=== PATIENT | male | born 1955 | race Caucasian/White ===

== ENCOUNTER → 2021-04-30 | Outpatient (CLI) | payer MEDICARE ==
[~2021-04-30] MED LIST: Advil200 M1 PO
[2021-04-30 10:58] LABS: Bilirubin, Urine Neg (Neg); Blood, Urine 2+ (Neg); Glucose Qualitative, Urine Neg (Neg); Ketones, Urine Neg (Neg); Leukocyte Esterase, Urine Neg (Neg); Nitrite, Urine Neg (Neg); Protein, Urine Neg (Neg); Specific Gravity, Urine 1.015 (1.003-1.022); Urobilinogen, Urine NORM (Normal)
[2021-04-30 11:18] LABS: Appearance, Urine Clear (Clear); Color, Urine Yellow (P-Yellow)
[2021-04-30 11:29] LABS: White Blood Cells, Urine 0-2 /hpf (0-5)
[2021-04-30 11:31] LABS: Bacteria Not Seen /hpf; Hyaline Casts 0-2 /lpf (0-2); Mucus Light (0-Heavy); Squamous Epithelial Cells Rare /hpf (Few)
== END ==
LOC: LAB SHORT 10:36 → LAB 10:36
PROVIDERS: Surgery
DX: Z51.0 Encounter for antineoplastic radiation therapy (principal); C61 Malignant neoplasm of prostate
CPT/HCPCS: 81001

== ENCOUNTER 2022-05-22 15:02 | Emergency (ER) | payer MEDICARE ==
[~2022-05-22] VITALS: Ht 180.3 cm; Wt 94.3 kg
== END 2022-05-22 19:27 | disposition home or self-care (01) ==
LOC: ER 15:02
DX: M70.32 Other bursitis of elbow, left elbow (principal); M25.832 Other specified joint disorders, left wrist; S62.102A Fracture of unspecified carpal bone, left wrist, initial encounter for closed fracture; X58.XXXA Exposure to other specified factors, initial encounter; Z79.899 Other long term (current) drug therapy
CPT/HCPCS: 73201; Q9967

== ENCOUNTER 2023-03-15 07:28 | Day surgery (SDC) | payer OTHER ==
[~2023-03-15] VITALS: Ht 182.9 cm; Wt 88.0 kg
[~2023-03-15 07:28] MED LIST changes: +ACET325 PO; +ALPHA LIPOIC ACID; +AMOCLA875 PO; -Advil200 M1 PO; +CENTRUM SILVER1 EAC2; +IBUP200 PO; +MELO7.5; +Penicillin V P500 MG PO; +Simvastatin20 MG PO; +TURMERIC500 M2; +VISBIOME 112.51 EACH PO; +VITAMIN D310 MC4; +ZINC15; +[UNRECOGNIZED DRUG - OTHER]
--- NOTE | 2023-03-15 09:10 | NUR ---
03/15/23 0910 [facility] APC USED FOR CAUTERY DURING PROCEDURE PER
[2023-03-15 09:52] VITALS: BP 149/82
== END 2023-03-15 09:45 | disposition home or self-care (01) ==
LOC: ORSCSDS 07:28
PROVIDERS: Internal Medicine Gastroenterology
PROC: 0DJD8ZZ Inspection of Lower Intestinal Tract, Via Natural or Artificial Opening Endoscopic (ICD-10-PCS; principal; 2023-03-15 09:00)
DX: K92.1 Melena (principal); Z86.010 Personal history of colon polyps; D64.9 Anemia, unspecified; K62.7 Radiation proctitis; K57.30 Diverticulosis of large intestine without perforation or abscess without bleeding; Z85.46 Personal history of malignant neoplasm of prostate; Z80.0 Family history of malignant neoplasm of digestive organs; Z87.891 Personal history of nicotine dependence; Z79.899 Other long term (current) drug therapy
CPT/HCPCS: J2405; J2704; J7120